=== PATIENT | female | born 1960 | race Hispanic/Latino ===

== ENCOUNTER 2023-01-15 20:34 | Inpatient (IN) | payer SELFPAY ==
[2023-01-15] MEDS ORDERED: cloNIDine 0.1 MG TAB ONE (20:52)
[2023-01-15 20:59] LABS: #Basophils 0.1 10x3/uL (0.0-0.2); #Eosinphils 0.2 10x3/uL (0.0-0.5); #Monocytes 0.8 10x3/uL (0.0-1.1); #Neutrophils 6.2 10x3/uL (1.5-8.4); %Basophils 0.8 % (0.0-2.0); %Eosinophils 2.2 % (0.0-6.0); %Monocytes 8.4 % (0.0-10.0); %Neutrophils 61.3 % (40.0-75.0); Hemoglobin 12.5 g/dL (12.0-15.5); Mean Corpuscular HGB CONC 32.6 g/dL (32.0-36.0); Mean Corpuscular Hemoglobin 29.3 pg (27.0-33.0); Mean Corpuscular Volume 89.7 fl (81.6-98.3); Mean Platelet Volume 10.2 fl (7.4-10.4); Platelet Count 259 10x3/uL (150-450); RBC Distribution Width 12.2 % (11.5-14.5); Red Blood Cell (RBC) Count 4.27 10x6/uL (3.90-5.03); White Blood Cell (WBC) Count 10.1 10x3/uL (3.5-10.5)
[2023-01-15 21:14] LABS: ALT (SGPT) 16 U/L (8-55); AST (SGOT) 27 U/L (5-34); Albumin 3.6 g/dL (3.4-4.8); Alkaline Phosphatase 83 U/L (40-110); Anion Gap 14 mmol/L (10-20); BUN (Urea Nitrogen) 17 mg/dL (9.8-20.1); Bilirubin, Total 0.3 mg/dL (0.2-1.2); Calc. Creatinine Clearance 0 mL/min (70-130); Calcium 9.1 mg/dL (7.8-10.44); Carbon Dioxide 23 mmol/L (23-31); Chloride 105 mmol/L (98-107); Estimated GFR 42; Globulin 3.6 g/dL (2.4-3.5); Glucose 97 mg/dL (80-115); Potassium 3.6 mmol/L (3.5-5.1); Protein, Total 7.2 g/dL (5.8-8.1); Sodium 138 mmol/L (136-145)
[2023-01-15] MEDS ORDERED: Acetaminophen 500 MG TAB ONE (21:49)
[2023-01-15] MEDS ORDERED: Aspirin Chewable 81 MG TAB ONE (22:29)
[2023-01-16] MEDS ORDERED: Ondansetron ODT 4 MG TAB PO PRN (00:15)
[2023-01-16 00:45] VITALS: BMI 28.2
[2023-01-16] MEDS: Sodium Chloride 0.9% 1,000 ML IV SCH ×4 (00:58→22:08)
[2023-01-16] MEDS: Acetaminophen 325 MG TAB PO PRN ×2 (01:56→09:00)
[2023-01-16 02:07] LABS: SARS-CoV-2 NAA Rapid Test Not Detected (NotDetected)
[2023-01-16 03:25] LABS: Bilirubin Neg (Negative); Blood, Urine 250 (Negative); Clarity Clear (Clear); Glucose, Urine (Dipstick) Normal (Negative); Ketone, Urine Negative (Negative); Leukocyte 100 (Negative); Nitrite Negative (Negative); Protein, Urine (Dipstick) 100 mg/dl (Neg-Trace); Urobilinogen Normal mg/dL (Less than 2)
[2023-01-16 03:37] LABS: Bacteria/HPF Rare-Few HPF (None Seen); RBC/HPF 21-50 HPF (0-3); Squamous Epithelial 0-3 HPF (0-3); WBC/HPF 0-3 HPF (0-3)
[2023-01-16 04:47] LABS: #Basophils 0.1 10x3/uL (0.0-0.2); #Eosinphils 0.2 10x3/uL (0.0-0.5); #Monocytes 0.7 10x3/uL (0.0-1.1); #Neutrophils 5.6 10x3/uL (1.5-8.4); %Basophils 0.6 % (0.0-2.0); %Eosinophils 1.8 % (0.0-6.0); %Lymphocytes 27.5 % (18.0-47.0); %Monocytes 7.8 % (0.0-10.0); %Neutrophils 62.1 % (40.0-75.0); Hemoglobin 10.4 g/dL (12.0-15.5); Mean Corpuscular HGB CONC 32.5 g/dL (32.0-36.0); Mean Corpuscular Hemoglobin 29.5 pg (27.0-33.0); Mean Corpuscular Volume 90.9 fl (81.6-98.3); Mean Platelet Volume 10.2 fl (7.4-10.4); Platelet Count 221 10x3/uL (150-450); RBC Distribution Width 12.3 % (11.5-14.5); Red Blood Cell (RBC) Count 3.52 10x6/uL (3.90-5.03)
[2023-01-16 04:56] LABS: Anion Gap 12 mmol/L (10-20); BUN (Urea Nitrogen) 14 mg/dL (9.8-20.1); Calc. Creatinine Clearance 67 mL/min (70-130); Calcium 8.4 mg/dL (7.8-10.44); Carbon Dioxide 25 mmol/L (23-31); Cardiac Risk 4.8 (Less than 4.5); Chloride 108 mmol/L (98-107); Cholesterol 173 mg/dl (< 200 Desired); Estimated GFR 59; Glucose 101 mg/dL (80-115); HDL Cholesterol 36 mg/dL (>60 Neg Risk); LDL Cholesterol, Calculated 110 mg/dL; Magnesium 1.8 mg/dL (1.6-2.6); Potassium 3.7 mmol/L (3.5-5.1); Sodium 141 mmol/L (136-145); Triglycerides 137 mg/dL (Less than 150)
[2023-01-16] MEDS: Aspirin 81 mg Enteric Coated Tablet PO SCH (09:00)
[2023-01-16] MEDS ORDERED: Lisinopril 10 MG TAB PO SCH (09:00)
[2023-01-16] MEDS ORDERED: Magnevist 469MG/ML 20 ML VIAL ONE (10:25)
[2023-01-16] MEDS: HYDROcodone/Acetaminophen 5/325 mg Tablet PO PRN ×2 (13:25→18:44)
[2023-01-16 13:31] LABS: Hemoglobin A1c 5.5 % (4.0-6.0)
[2023-01-16] MEDS ORDERED: Atorvastatin Calcium 40 MG TAB PO SCH (21:00)
[2023-01-17] MEDS: HYDROcodone/Acetaminophen 5/325 mg Tablet PO PRN (03:45)
[2023-01-17] MEDS: Ondansetron PF 4 MG/2 ML Vial IVP PRN ×2 (03:56→09:23)
[2023-01-17] MEDS ORDERED: Lisinopril 20 MG TAB PO SCH ×2 (09:00→21:00)
[2023-01-17 09:06] VITALS: TEMP 98.4
[2023-01-17] MEDS ORDERED: Iopamidol 300 61% 100 ML VIAL FS ONE (09:16)
[2023-01-17] MEDS: Aspirin 81 mg Enteric Coated Tablet PO SCH (09:48)
[2023-01-17] MEDS ORDERED: NIFEdipine XL 90 MG TAB PO SCH (10:15)
[2023-01-17] MEDS ORDERED: NIFEdipine XL 60 MG TAB PO SCH (11:15)
[2023-01-17] MEDS ORDERED: Dexamethasone 4 mg/ml Vial SLOW IVP SCH (12:00)
[2023-01-17] MEDS ORDERED: Dexamethasone 4 MG in Sodium Chloride 0.9% 50 ML IVPB SCH (12:15)
[2023-01-17] MEDS: Acetaminophen 325 MG TAB PO PRN (14:14)
[2023-01-17 14:27] VITALS: BP 189/89
[2023-01-18] MEDS ORDERED: NIFEdipine XL 60 MG TAB PO SCH (09:00)
== END 2023-01-17 16:15 | disposition short-term general hospital (02) | DRG 70 ==
LOC: CSHERS 20:34 → CSHTELE 22:32 → UNDOADMOB 01-16 00:40 → CSHTELE 01-16 00:40 → OBSVTOIN 01-17 08:30
PROVIDERS: ADMIT Family Medicine; ATTEND Nurse Practitioner Family
DX: G93.89 Other specified disorders of brain (principal); G93.6 Cerebral edema; I16.1 Hypertensive emergency; N17.9 Acute kidney failure, unspecified; G45.9 Transient cerebral ischemic attack, unspecified; F17.210 Nicotine dependence, cigarettes, uncomplicated; Z20.822 Contact with and (suspected) exposure to COVID-19; Z88.8 Allergy status to other drugs, medicaments and biological substances; Z79.899 Other long term (current) drug therapy
CPT/HCPCS: 36415; 70450; 70553; 71045; 71260; 74177; 80048; 80053; 80061; 81001; 83036; 83735; 85025; 93005; 93306; 93880; 96372; 96374; A9579; G0378; J1100; J1650; J2405; J7050; Q9967; U0002

== ENCOUNTER 2023-09-30 00:22 | Emergency (ER) | payer SELFPAY ==
[2023-09-30] MEDS ORDERED: Acetaminophen 500 MG TAB ONE (00:50)
[2023-09-30 01:11] LABS: Anion Gap 15 mmol/L (10-20); BUN (Urea Nitrogen) 18 mg/dL (9.8-20.1); Calc. Creatinine Clearance 0 mL/min (70-130); Calcium 9.8 mg/dL (7.8-10.44); Carbon Dioxide 26 mmol/L (23-31); Chloride 98 mmol/L (98-107); Estimated GFR 56; Glucose 118 mg/dL (80-115); Potassium 3.4 mmol/L (3.5-5.1); Sodium 136 mmol/L (136-145)
[2023-09-30] MEDS ORDERED: Ibuprofen 200 MG TAB ONE (02:28)
== END 2023-09-30 03:16 | disposition home or self-care (01) ==
LOC: CSHERS 00:22
DX: I10 Essential (primary) hypertension (principal); Z87.891 Personal history of nicotine dependence
CPT/HCPCS: 80048; 99283

== ENCOUNTER 2024-02-15 08:15 | Outpatient (CLI) | payer OTHER | END 2024-02-15 08:16 | disposition home or self-care (01) | LOC: CSHMRI 08:15 | PROVIDERS: ATTEND Psychiatry & Neurology Neurology | DX: M48.02 Spinal stenosis, cervical region (principal); D49.6 Neoplasm of unspecified behavior of brain; M47.12 Other spondylosis with myelopathy, cervical region; Z98.890 Other specified postprocedural states | CPT/HCPCS: 70553; 72156 ==

== ENCOUNTER 2024-08-26 14:30 | Outpatient (CLI) | payer OTHER | END 2024-08-26 14:31 | disposition home or self-care (01) | LOC: CSHCT 14:30 | PROVIDERS: ATTEND Psychiatry & Neurology Neurology | DX: D49.6 Neoplasm of unspecified behavior of brain (principal); Z98.890 Other specified postprocedural states | CPT/HCPCS: 70450 ==